=== PATIENT | male | born 1985 | race Caucasian/White ===

== ENCOUNTER 2019-04-03 22:30 | Emergency (ER) | payer OTHER, MEDICAID, SELFPAY ==
[2019-04-03 22:35] VITALS: PULSE 58; RESP 16; TEMP 36.8; O2SAT 94; BMI 29.9
[2019-04-03 22:38] VITALS: BP 138/84; PULSE 58; RESP 16; TEMP 36.8; O2SAT 94
--- NOTE | 2019-04-03 23:10 | ED_ITS ---
HPI - Extremity Problem General Chief complaint: Extremity Problem,Nontraumatic Stated complaint: RA, Pain Everywhere Time Seen by Provider: 04/03/19 23:08 Source: patient Mode of arrival: ambulatory Limitations: no limitations History of Present Illness HPI Narrative: Patient is a 33-year-old male with history of rheumatoid arthritis who presents with pain all over his body mostly on the left side. He is having more pain in his rib cage shoulders and other joints. He was previously seeing a comprehensive ophthalmologist, he was trialed on jimy all but he says had bad reactions to it. He then stopped going to the comprehensive ophthalmologist because he was put in to assisted. He got out of assisted in October of 2017 and has not followed up with any physician since then. His pain has progressively gotten worse. He has been trying to take Tylenol and ibuprofen without any relief. MD Complaint: joint swelling and joint paint Related Data Home Medications Medication Instructions Recorded Confirmed etanercept [Enbrel] #0 09/28/17 sulfamethoxazole-trimethoprim 1 tab PO BID #0 09/28/17 Previous Rx's Medication Instructions Recorded clindamycin HCl 300 mg PO Q6H #28 cap 09/28/17 Allergies Allergy/AdvReac Type Severity Reaction Status Date / Time No Known Drug Allergies Allergy Verified 04/03/19 22:45 Review of Systems Review of Systems GENERAL: Denies chills, fatigue, malaise, fever, sweats, travel HEENT: Denies sinus pain, ear pain, sore throat, difficulty swallowing, neck pain RESPIRATORY: Denies dyspnea, cough, wheezing, hemoptysis, sputum. CARDIOVASCULAR: Denies chest pain, palpitations, orthopnea, edema GASTROINTESTINAL: Denies nausea, vomiting, abdominal pain, diarrhea, constipation, melena. : Denies dysuria, frequency, incontinence, hematuria, urinary retention, flank pain. MUSCULOSKELETAL: See HPI SKIN: No rash, no erythema, no pruritus NEUROLOGIC: Denies weakness, dizziness, headache, numbness, change in speech, confusion PSYCHIATRIC: No concerning psychosocial issues. 12 point review of systems is negative except for those stated above and HPI [facility] Medical History Rheumatoid arthritis (Chronic) Social History Smoking Status: Current every day smoker Social History Smoking Status: Current every day smoker Exam Initial Vital Signs Initial Vital Signs: Vital Signs Temperature 98.3 F 04/03/19 22:35 Pulse Rate 58 L 04/03/19 22:35 Respiratory Rate 16 04/03/19 22:35 Pulse Oximetry 94 04/03/19 22:35 GENERAL: Curled on right side CARDIOVASCULAR: peripheral pulses in tact, cap refill <2 sec RESPIRATORY: No respiratory distress, speaks in full sentences without difficulty ABDOMEN: Soft, nontender, no guarding or rebound EXTREMITIES: Normal range of motion, no clubbing or edema. Neurovascularly intact. No swelling or deformity of fingers no erythematous joints. NEUROLOGICAL: Cranial nerves II through XII grossly intact. Normal gait and speech. SKIN: Warm, dry, no petechiae, no rashes or lesions. Course Vital Signs - 8 hr 04/03/19 22:35 04/03/19 22:38 Temperature 98.3 F 98.3 F Pulse Rate 58 L 58 L Respiratory Rate 16 16 Blood Pressure [Left Arm] 138/84 Pulse Oximetry 94 94 MDM - Extremity (Nontraumatic) MDM Narrative Medical decision making narrative: I initially discussed with patient he would likely be getting prednisone to help with some of his pain. Patient has acute on chronic pain with untreated rheumatoid arthritis. 11:10 p.m. patient told nursing staff he did not want prednisone and left the emergency department. Discharge Plan Departure Patient Disposition: Home Clinical Impression: Rheumatoid arthritis Qualifiers: Rheumatoid arthritis location: multiple sites Rheumatoid factor presence: unspecified presence Qualified Code(s): M06.9 - Rheumatoid arthritis, unspecified Discharge Date/Time: 04/03/19 23:10 Interventions: ED Discharge Assessment Last Done: 04/03/19 23:10 Instructions: DI for Rheumatoid Arthritis Activity Restrictions/Additional Instructions: *You have been diagnosed with rheumatoid arthritis *What to do: *Continue to take medications as directed [At your request you're medications have been faxed to] *Follow up with your primary care provider in 2-3 days [and follow up with ortho, urology etc] *Return to ER if you should have [such as] [or] any new, worsening or concerning symptoms Prescriptions: No Action sulfamethoxazole-trimethoprim 800 MG/160 MG tablet 1 tab PO BID Qty: 0 RF: 0 etanercept [Enbrel] 25 mg/0.5mL (0.51) syringe Qty: 0 RF: 0 clindamycin HCl 300 MG capsule 300 mg PO Q6H Qty: 28 RF: 0
== END 2019-04-03 23:10 | disposition home or self-care (01) ==
LOC: ED 23:17
PROVIDERS: Emergency Provider Emergency Medicine
DX: M06.9 Rheumatoid arthritis, unspecified (principal)
CPT/HCPCS: 99282